=== PATIENT | female | born 1965 | race Caucasian/White ===

== ENCOUNTER 2021-01-08 06:28 | Day surgery (SDC) | payer MEDICAID, SELFPAY ==
[~2021-01-08] VITALS: Ht 152.4 cm; Wt 74.8 kg
[2021-01-08] MEDS ORDERED: SIMETHICONE 40 MG/0.6 ML ML ONE (08:44)
[2021-01-08] MEDS ORDERED: MIDAZOLAM HCL 5 MG/5 ML VIAL ONE (08:44)
[2021-01-08] MEDS ORDERED: MEPERIDINE 100 MG INJ. 100 MG/ML VIAL ONE (08:44)
[2021-01-08 13:03] VITALS: BP_SYST 132
== END 2021-01-08 10:00 | disposition home or self-care (01) ==
LOC: SDS 06:28 → SMU 06:30 → SDS 10:00
PROVIDERS: ATTEND Internal Medicine Gastroenterology
DX: R19.5 Other fecal abnormalities (principal); D12.0 Benign neoplasm of cecum; K29.80 Duodenitis without bleeding; K31.7 Polyp of stomach and duodenum; K64.4 Residual hemorrhoidal skin tags; K29.50 Unspecified chronic gastritis without bleeding; K25.9 Gastric ulcer, unspecified as acute or chronic, without hemorrhage or perforation; K21.9 Gastro-esophageal reflux disease without esophagitis; Z20.822 Contact with and (suspected) exposure to COVID-19; Z79.899 Other long term (current) drug therapy
CPT/HCPCS: 43239; 45385; 88305; 88312; 88313; 99152; 99153; G0378; J2175; J2250; U0003